=== PATIENT | female | born 2000 | race Caucasian/White ===

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

== ENCOUNTER → 2020-04-02 | Outpatient (CLI) | payer BC ==
[~2020-04-02] MED LIST changes: +ISOVUE-370 76% 100ML VIAL As Ordered ONE
--- NOTE | 2020-04-02 11:09 | REP ---
CT soft tissue neck: 04/02/2020. Indication: Neck pain. Neck soft tissue swelling. Technique: Axial CT images of the neck soft tissues were obtained following the administration of IV iodinated contrast with coronal and sagittal reconstructions provided. Comparison: None. Findings: There is no abnormal solid soft tissue mass, abnormal fluid collection or cervical lymphadenopathy. The vascular structures are normal. No focal abnormalities of the submandibular, parotid or thyroid glands are present. The visualized lungs are clear. Impression: No neck soft tissue abnormal solid soft tissue mass, abnormal fluid collection or cervical lymphadenopathy. Electronically Signed by Michael Dawkins DO 04/02/2020 11:00 A
== END ==
LOC: M RAD 08:48
PROVIDERS: ATTEND Physician Assistant
DX: R22.1 Localized swelling, mass and lump, neck (principal)
CPT/HCPCS: 70491; Q9967

== ENCOUNTER → 2020-05-18 | Outpatient (CLI) | payer BC ==
[~2020-05-18] MED LIST changes: -ISOVUE-370 76% 100ML VIAL As Ordered ONE
--- NOTE | 2020-07-02 09:34 | REP ---
FIRST TRIMESTER OBSTETRIC SONOGRAPHY HISTORY: Less than eight weeks gestation, supervision of . History of septate uterus. FINDINGS: Transabdominal scanning demonstrates an intrauterine gestation sac. There is a yolk sac and an embryonic pole within the sac. The crown-rump length is 3.2 mm corresponding with a gestational age estimate of six weeks 0 days. heart rate is recorded at 112 beats per minute. There is a 1.7 cm cystic area in the left maternal ovary consistent with corpus luteum. No ovarian abnormality is seen. Right ovary measures 3.5 x 2.5 x 1.9 cm. Left ovarian dimensions are 3.9 x 2.5 x 2.8 cm. Uterine dimensions are 8.3 x 5.7 x 6.7 cm. No uterine abnormality. IMPRESSION: Viable single intrauterine gestation at six weeks 0 days by crown-rump length. [facility]
== END ==
LOC: M RAD 12:08
PROVIDERS: ATTEND Physician Assistant
DX: Z34.81 Encounter for supervision of other normal pregnancy, first trimester (principal); Z3A.01 Less than 8 weeks gestation of pregnancy

== ENCOUNTER → 2020-08-19 | Outpatient (CLI) | payer BC ==
--- NOTE | 2020-08-20 05:35 | REP ---
INDICATION: [facility] OF N[facility]AL PREG, 2ND TRIMESTER COMPARISON: None. TECHNIQUE: Transabdominal obstetrical ultrasound with color Doppler evaluation. FINDINGS: Examination demonstrates a single live intrauterine in cephalic presentation. motion is identified by technologist. Placenta is noted posterior/left lateral and grade 0 without evidence for placenta previa or abruption. Amniotic fluid volume is normal. Cervix measures 5.1 cm in length and appears closed.. Gestational age by LMP 19 weeks 1 day with AYDEE 01/12/2021. Gestational age by current measurements 20 weeks 0 days with AYDEE 01/06/2021. FHR equals 136 beats per minute. BPD: 4.6 cm 20 weeks 0 days HC: 16.3 cm 19 weeks 1 day AC: 14.5 cm 19 weeks 6 days FL: 3.4 cm 20 weeks 3 days HL: 3.2 cm 20 weeks 3 days HC/AC: 1.13 Estimated weight 327 grams (90thpercentile based on age by LMP; 50th percentile based on age by current measurements). Anatomical assessment demonstrates normal structures including cranium, choroid plexus, cavum, cerebellum/posterior fossa, facial features, lungs, four-chamber heart/ventricular outflow tracts, diaphragm, stomach, cord insertion/three-vessel cord, kidneys/bladder, spine, and extremities. IMPRESSION: Single live intrauterine in cephalic presentation demonstrating appropriate estimated weight. Anatomical assessment is complete and normal. <Electronically signed by Darrius Medina > 08/20/20 0531
== END ==
LOC: M RAD 09:39
PROVIDERS: ATTEND Obstetrics & Gynecology
DX: Z34.82 Encounter for supervision of other normal pregnancy, second trimester (principal); Z36.89 Encounter for other specified antenatal screening; Z3A.19 19 weeks gestation of pregnancy

== ENCOUNTER → 2020-10-18 | Outpatient (CLI) | payer BC ==
[2020-10-18 15:42] LABS: HEMATOCRIT 33.1 % (36.0-47.0); HEMOGLOBIN 10.6 g/dl (12.0-15.5); MEAN CORPUSCULAR HEMOGLOBIN 28.9 pg (27.0-33.0); MEAN CORPUSCULAR VOLUME 90.2 fl (80.0-96.0); PLATELET COUNT, AUTOMATED 282 10^3/uL (150-450); RED BLOOD COUNT 3.67 10^6/uL (4.00-5.40); WHITE BLOOD COUNT 10.2 10^3/uL (4.0-10.0)
== END ==
LOC: M LAB 13:27
PROVIDERS: ATTEND Obstetrics & Gynecology
DX: Z34.02 Encounter for supervision of normal first pregnancy, second trimester (principal)

== ENCOUNTER → 2020-10-20 | Outpatient (CLI) | payer BC | LOC: M LAB 08:18 | PROVIDERS: ATTEND Obstetrics & Gynecology | DX: R73.02 Impaired glucose tolerance (oral) (principal) ==

== ENCOUNTER → 2020-12-14 | Outpatient (REF) | payer BC | LOC: M LAB REF 12:33 | PROVIDERS: ATTEND Advanced Practice Midwife | DX: Z34.83 Encounter for supervision of other normal pregnancy, third trimester (principal) ==

== ENCOUNTER → 2021-09-16 | Outpatient (REF) | LOC: M EMP 16:19 | PROVIDERS: ATTEND Family Medicine | DX: Z20.828 Contact with and (suspected) exposure to other viral communicable diseases (principal) ==

== ENCOUNTER → 2021-11-24 | Outpatient (CLI) | payer BC | LOC: M PLAIMG 11:04 | PROVIDERS: ATTEND Physician Assistant | DX: M25.532 Pain in left wrist (principal) ==

== ENCOUNTER → 2022-03-22 | Outpatient (CLI) | payer BC | LOC: M WHC 13:43 → M PLALAB 13:43 | PROVIDERS: ATTEND Surgery | DX: R59.9 Enlarged lymph nodes, unspecified (principal); N63.20 Unspecified lump in the left breast, unspecified quadrant ==

== ENCOUNTER → 2022-03-22 | Outpatient (CLI) | payer BC | LOC: M PLALAB 11:53 | PROVIDERS: ATTEND Surgery | DX: Z13.71 Encounter for nonprocreative screening for genetic disease carrier status (principal) ==

== ENCOUNTER → 2022-03-29 | Outpatient (CLI) | payer BC ==
[2022-03-29 11:57] VITALS: BP 98/62
== END ==
LOC: M WHCPRO 10:22
PROVIDERS: ATTEND Surgery
DX: N63.21 Unspecified lump in the left breast, upper outer quadrant (principal)

== ENCOUNTER → 2022-06-30 | Outpatient (REF) | payer BC | LOC: M PLALAB 12:07 | PROVIDERS: ATTEND Advanced Practice Midwife | DX: Z12.4 Encounter for screening for malignant neoplasm of cervix (principal); R87.615 Unsatisfactory cytologic smear of cervix ==

== ENCOUNTER → 2022-08-30 | Outpatient (REF) | payer BC | LOC: M PLALAB 10:34 | PROVIDERS: ATTEND Advanced Practice Midwife | DX: R87.810 Cervical high risk human papillomavirus (HPV) DNA test positive (principal); Z12.4 Encounter for screening for malignant neoplasm of cervix | CPT/HCPCS: 87624; G0123 ==

== ENCOUNTER → 2022-09-18 | Outpatient (CLI) | payer BC | LOC: M WHC 07:07 | PROVIDERS: ATTEND Nurse Practitioner Women's Health | DX: D24.2 Benign neoplasm of left breast (principal); R59.0 Localized enlarged lymph nodes; Z80.3 Family history of malignant neoplasm of breast ==

== ENCOUNTER → 2022-09-20 | Outpatient (CLI) | payer BC | LOC: M WHC 15:08 | PROVIDERS: ATTEND Surgery | DX: R59.9 Enlarged lymph nodes, unspecified (principal); N63.32 Unspecified lump in axillary tail of the left breast ==

== ENCOUNTER → 2022-09-20 | Outpatient (CLI) | payer BC ==
[2022-09-20 16:01] VITALS: BP 110/72
== END ==
LOC: M WHCPRO 14:40
PROVIDERS: ATTEND Surgery
DX: R59.9 Enlarged lymph nodes, unspecified (principal)
CPT/HCPCS: 10035; 38505; 88305; A4648

== ENCOUNTER → 2023-01-02 | Outpatient (CLI) | payer BC ==
[2023-01-02 10:48] LABS: BASO # 0.1 10^3/uL (0.0-0.2); BASO % 1.2 % (0.0-1.0); EOS # 0.5 10^3/uL (0.0-0.5); HEMATOCRIT 36.7 % (36.0-47.0); HEMOGLOBIN 11.4 g/dl (12.0-15.5); LYMPH # 2.1 10^3/uL (1.5-5.0); LYMPH % 40.1 % (24.0-44.0); MEAN CORPUSCULAR HEMOGLOBIN 24.4 pg (27.0-33.0); MEAN CORPUSCULAR HGB CONC 31.1 g/dl (32.0-36.5); MEAN CORPUSCULAR VOLUME 78.4 fl (80.0-96.0); MONO # 0.5 10^3/uL (0.0-0.8); MONO % 9.6 % (2.0-8.0); NEUTROPHILS % 38.9 % (36.0-66.0); PLATELET COUNT, AUTOMATED 412 10^3/uL (150-450); RED BLOOD COUNT 4.68 10^6/uL (4.00-5.40); WHITE BLOOD COUNT 5.2 10^3/uL (4.0-10.0)
[2023-01-02 11:18] LABS: ALBUMIN 4.3 G/DL (3.2-5.2); ALKALINE PHOSPHATASE 59 U/L (46-116); ALT/SGPT 9 U/L (7.0-40); AST/SGOT 12 U/L (<34); BILIRUBIN,TOTAL 0.7 MG/DL (0.3-1.2); BLOOD UREA NITROGEN 15 MG/DL (9-23); CALCIUM LEVEL 9.4 MG/DL (8.5-10.1); CARBON DIOXIDE LEVEL 25 MMOL/L (20-31); CHLORIDE LEVEL 104 MMOL/L (98-107); CREATININE FOR GFR 0.89 MG/DL (0.55-1.30); FREE T4 1.11 NG/DL (0.89-1.76); GLOMERULAR FILTRATION RATE > 60.0 (>60); GLUCOSE, FASTING 94 MG/DL (60-100); POTASSIUM SERUM 4.5 MMOL/L (3.5-5.1); SODIUM LEVEL 138 MMOL/L (136-145); THYROID STIMULATING HORMONE 1.727 uIU/ML (0.55-4.78); TOTAL PROTEIN 6.9 G/DL (5.7-8.2)
== END ==
LOC: M LAB 08:54
PROVIDERS: ATTEND Physician Assistant
DX: R22.1 Localized swelling, mass and lump, neck (principal)

== ENCOUNTER → 2023-01-03 | Outpatient (CLI) | payer BC | LOC: M WHC 07:04 | PROVIDERS: ATTEND Nurse Practitioner Women's Health | DX: N64.4 Mastodynia (principal) ==

== ENCOUNTER → 2023-01-03 | Outpatient (CLI) | payer BC | LOC: M WHC 07:03 | PROVIDERS: ATTEND Physician Assistant | DX: R22.1 Localized swelling, mass and lump, neck (principal); E04.1 Nontoxic single thyroid nodule ==

== ENCOUNTER 2023-02-15 12:44 | Day surgery (SDC) | payer BC ==
[~2023-02-15] VITALS: Ht 162.6 cm; Wt 54.4 kg
[~2023-02-15 12:44] MED LIST changes: +MEDR150I10 IM
[2023-02-15 13:40] LABS: HEMATOCRIT 39.1 % (36.0-47.0); HEMOGLOBIN 12.4 g/dl (12.0-15.5); MEAN CORPUSCULAR HEMOGLOBIN 24.8 pg (27.0-33.0); MEAN CORPUSCULAR HGB CONC 31.7 g/dl (32.0-36.5); MEAN CORPUSCULAR VOLUME 78.2 fl (80.0-96.0); PLATELET COUNT, AUTOMATED 405 10^3/uL (150-450); WHITE BLOOD COUNT 7.3 10^3/uL (4.0-10.0)
[2023-02-15] MEDS ORDERED: ROCURONIUM BROMIDE 50MG/5ML VIAL As Ordered ONE (14:34)
[2023-02-15] MEDS ORDERED: ONDANSETRON 4MG 2ML VIAL As Ordered ONE (14:34)
[2023-02-15] MEDS ORDERED: SUGAMMADEX SODIUM 500 MG/5 ML VIAL (BRIDION) As Ordered ONE (14:34)
[2023-02-15] MEDS ORDERED: LIDOCAINE 2% 100MG/5ML SDV (FOR ANES.) As Ordered ONE (14:34)
[2023-02-15] MEDS ORDERED: propofoL 200 MG/20 ML VIAL As Ordered ONE (14:34)
[2023-02-15] MEDS ORDERED: KETOROLAC 60MG 2ML VIAL As Ordered ONE (14:34)
[2023-02-15] MEDS ORDERED: fentaNYL 100 MCG/2 ML INJECTION As Ordered ONE (14:40)
[2023-02-15] MEDS ORDERED: MIDAZOLAM INJ 2MG/2ML VIAL As Ordered ONE (14:40)
[2023-02-15] MEDS ORDERED: BUPIVACAINE HCL 0.25% 30ML VIAL As Ordered ONE (15:01)
[2023-02-15] MEDS ORDERED: ONDANSETRON 4MG 2ML VIAL IV PRN (16:20)
[2023-02-15] MEDS ORDERED: LR 1,000 ML IV SCH ×2 (16:20→17:50)
[2023-02-15] MEDS ORDERED: fentaNYL 100 MCG/2 ML INJECTION IV PRN (16:20)
[2023-02-15] MEDS: oxyCODONE 5MG TAB PO PRN ×2 (16:47→17:19)
[2023-02-15] MEDS: HYDROMORPHONE HCL 0.5 MG/ 0.5 ML SYRINGE IV PRN ×4 (16:48→17:09)
[2023-02-15] MEDS ORDERED: OXYC1TAB23 PO (17:15)
[2023-02-15] MEDS ORDERED: IBUP-1022 PO (17:15)
[2023-02-15] MEDS ORDERED: METOCLOPRAMIDE INJ 10MG/2ML VIAL IV STA (17:30)
[2023-02-15] MEDS ORDERED: PERCOCET 5MG/325MG TAB PO PRN (17:50)
[2023-02-15] MEDS ORDERED: PROMETHAZINE 25MG/ML 1ML VIAL IV STA (19:00)
[2023-02-15 19:55] VITALS: BP 108/61
== END 2023-02-15 20:04 | disposition home or self-care (01) ==
LOC: M SDC 12:44
PROVIDERS: ATTEND Specialist
DX: R10.2 Pelvic and perineal pain (principal); N80.9 Endometriosis, unspecified; Z91.010 Allergy to peanuts; Z91.011 Allergy to milk products; Z91.012 Allergy to eggs; Z79.899 Other long term (current) drug therapy
CPT/HCPCS: 36415; 58662; 81025; 85027; J1100; J1170; J1885; J2250; J2405; J2550; J2765; J3010; S0020

== ENCOUNTER → 2023-05-09 | Outpatient (CLI) | payer BC ==
[~2023-05-09] MED LIST changes: +IBUP-1022 PO; -MEDR150I10 IM; +MEDR150I13 IM; +OXYC1TAB23 PO
== END ==
LOC: M WUC 10:15
PROVIDERS: ATTEND Physician Assistant
DX: Q05.9 Spina bifida, unspecified (principal); R10.2 Pelvic and perineal pain; M41.85 Other forms of scoliosis, thoracolumbar region

== ENCOUNTER → 2023-05-15 | Outpatient (CLI) | payer BC | LOC: M WHC 07:01 | PROVIDERS: ATTEND Nurse Practitioner Women's Health | DX: R59.9 Enlarged lymph nodes, unspecified (principal) ==